=== PATIENT | female | born 1980 ===

== ENCOUNTER 2019-04-01 13:56 | Outpatient (CLI) | payer OTHER ==
--- NOTE | 2019-04-01 14:07 | RAD ---
XR Chest Pa Lat STANDARD HISTORY: Influenza a COMPARISON: None FINDINGS: The heart size is normal. The lungs are well expanded without focal areas of consolidation, pneumothorax or pleural effusions. IMPRESSION: No radiographic evidence of acute cardiopulmonary process.
== END 2019-04-01 13:57 | disposition home or self-care (01) ==
LOC: RAD-FRANK 13:56
PROVIDERS: ATTEND Nurse Practitioner Family
DX: J10.1 Influenza due to other identified influenza virus with other respiratory manifestations (principal)
CPT/HCPCS: 71046